=== PATIENT | female | born 1950 | race Two or more races ===

== ENCOUNTER 2017-07-17 10:42 | Day surgery (SDC) | payer BC, MEDICARE ==
[~2017-07-17 10:42] MED LIST: RINGER'S SOLUTION,LACTATED 1,000 ML IV PRN
[2017-07-17] MEDS ORDERED: RINGER'S SOLUTION,LACTATED 1,000 ML IV ONE (11:30)
[2017-07-17] MEDS ORDERED: RINGER'S SOLUTION,LACTATED 1,000 ML IV PRN (13:07)
[2017-07-17 14:25] VITALS: BP 115/69
--- NOTE | 2017-07-17 19:32 | OR ---
Operative Report - Dictated Report Narrative: OPERATIVE REPORT DATE OF OPERATION: 07/17/2017 PREOPERATIVE DIAGNOSIS: No prior dedicated: Studies POSTOPERATIVE DIAGNOSIS: Diverticulosis with severe angulation at 30 cm and inability to advance the scope proximal to that level OPERATION: Colonoscopy to 35 cm SURGEON: Berna Monahan MD ANESTHESIA: ENRIQUETA Soto CRNA INDICATIONS FOR PROCEDURE: The patient is a 67-year-old female referred by A Sal JIMENEZ. The patient has had no previous dedicated: Studies. There is no family history of colon cancer. She is currently asymptomatic. The patient does have a history of hysterectomy and radiation for cancer. FINDINGS: Sigmoid diverticulosis with sharp angulation at 35 cm and fixation of the sigmoid precluding proximal exam. NARRATIVE OF PROCEDURE: The patient was identified in the holding area, and prior to the administration of anesthetic, a multidisciplinary timeout was observed. With the patient in the left lateral position and after the administration of intravenous sedation, the perineum was inspected. There was no evidence of pilonidal disease or skin breakdown. The external appearance of the anus was normal. Sphincter tone was good. The flexible fiberoptic colonoscope was inserted into the rectum which was insufflated with air. The rectal mucosa and submucosal vascular pattern appeared normal, the prep was seen to be complete. The scope was advanced through the sigmoid colon, which contained several non-impacted noninflamed diverticular openings. There were several turns in the sigmoid and at 30 cm a particularly sharp angulation. The scope was eventually maneuvered around this and a stretch of normal-appearing sigmoid visualized proximally. The scope however was not flexible enough to continue proximally without risk of bowel injury. The scope was withdrawn and readvanced on 3 separate occasions with similar results. The scope was then slowly withdrawn in a circular fashion so that all aspects of distal colonic mucosa were inspected. The mucosa and submucosal vascular pattern appeared normal, specifically there was no gross evidence to suggest colitis or inflammatory bowel disease and no AV malformations were seen. No polyps were encountered. The scope was gradually withdrawn to the level of the rectum. As much insufflated air as possible was removed. The scope was withdrawn from the patient and the procedure terminated. The patient tolerated the anesthetic and procedure well without complication and was transferred back to the ambulatory surgery area awake and in stable condition. The patient remained stable throughout a period of postoperative observation. She denied abdominal discomfort, was able to tolerate by mouth intake, and was up without assistance. I shared the operative findings with the patient and she was given copies of the photographs which appear in the medical record. She was discharged home with instructions not to engage in hazardous activity today , but may resume normal activity tomorrow. She is to maintain a clear liquid diet with nothing by mouth after midnight. She is to continue those medications as listed in the history and physical exam. I explained that because the colon could not be safely examined with endoscopy, a completion barium enema will be scheduled for tomorrow. We will proceed according to the result of that exam. Reviewed and electronically signed
== END 2017-07-17 10:43 | disposition home or self-care (01) ==
LOC: AMB 10:42
PROVIDERS: ATTEND Surgery
PROC: 0DJD8ZZ Inspection of Lower Intestinal Tract, Via Natural or Artificial Opening Endoscopic (ICD-10-PCS; principal; 2017-07-17 11:15)
DX: Z12.11 Encounter for screening for malignant neoplasm of colon (principal); K57.30 Diverticulosis of large intestine without perforation or abscess without bleeding; E03.9 Hypothyroidism, unspecified; F41.9 Anxiety disorder, unspecified; F32.9 Major depressive disorder, single episode, unspecified; Z68.41 Body mass index [BMI] 40.0-44.9, adult; Z85.42 Personal history of malignant neoplasm of other parts of uterus